=== PATIENT | male | born 1965 | race Caucasian/White ===

== ENCOUNTER 2016-09-05 12:35 | Emergency (ER) | payer BC, OTHER ==
[~2016-09-05] VITALS: Ht 172.7 cm; Wt 93.5 kg
[~2016-09-05 12:35] MED LIST: NADO20TA PO; PRED10TA PO
[2016-09-05 12:40] VITALS: TEMP 36.8; Ht 172.7 cm; Wt 93.5 kg
[2016-09-05] MEDS ORDERED: XYLOCAINE 1%/SOD BICARB 20 ML VIAL INFIL ONE (13:15)
--- NOTE | 2016-09-05 13:37 | EMERGENCY ROOM VISIT NOTE ---
ED Visit Note First contact with patient: 12:44 CHIEF COMPLAINT: Finger infection HISTORY OF PRESENT ILLNESS: This 51-year-old male patient presents to the emergency department complaining of pain and swelling of the right fourth finger. Doesn't remember any injury to the area before it got swollen and tender. First noticed some symptoms about 6 days ago, pain and swelling got progressively worse since that time. The patient has not had a fever. There has been no discharge. The patient has tried Tylenol for pain, with some relief. The patient's tetanus shot is up-to-date. He is right-hand dominant REVIEW OF SYSTEMS: A 6 system review of systems was completed with positives and pertinent negatives listed in the HPI. ALLERGIES: None MEDICATIONS: See chart PMH: See chart. SOCIAL HISTORY: See chart. PHYSICAL EXAM: Vital Signs: Reviewed Nurse's notes, temperature within normal limits, vital signs stable. GENERAL: Pleasant and cooperative, in no acute distress, nontoxic in appearance, well-developed, well-nourished. SKIN: There is erythema, swelling, and tenderness of the nail fold around the lateral cuticle. There is moderate fluctuance with no drainage. There is no pus under the nail. There is no lymphangitic streaking up the hand. Capillary refill less than two seconds. MUSCULOSKELETAL: The patient has full range of motion and strength of the right hand. Peripheral pulses 2+. ED COURSE: I examined the patient. Verbal consent was obtained to perform the procedure. The base of the right fourth finger was cleansed with Betadine, and a digital block was performed using 1% buffered lidocaine. Good anesthesia was achieved. The area of fluctuance of the right fourth finger was cleaned with Betadine. An 11 blade was then used to lift the cuticle off of the nail, successfully draining the paronychia. A small amount of blood and pus was expressed. More was expressed with pressure until all of the pus was relieved. The area was thoroughly cleaned with sterile saline. The area was then dressed with bacitracin and a bandage. The patient tolerated the procedure well. The patient was discharged home in stable condition. Current/Historical Medications No Active Prescriptions or Reported Meds Allergies Coded Allergies: No Known Allergies (Unverified , 02/10/12) Vital Signs Date Time Temp Pulse Resp B/P (MAP) Pulse Ox O2 Delivery O2 Flow Rate FiO2 09/05/16 14:15 71 18 130/79 95 09/05/16 12:40 36.8 61 18 144/90 95 Room Air Medications Administered Medications (Trade) Dose Ordered Sig/Steven Route Start Time Stop Time Status Last Admin Dose Admin Lidocaine HCl (Buffered Lidocaine 1% Inj) 20 ml ONE ONCE INFIL 09/05/16 13:15 09/05/16 13:16 DC 09/05/16 13:15 20 ML Departure Information Impression Primary Impression: Paronychia of right ring finger Dispostion Home / Self-Care Condition GOOD Prescriptions No Active Prescriptions or Reported Meds Referrals RV. Alcantar MD (PCP) Patient Instructions ED Fingernail Infec, [facility] [employer] Additional Instructions Soak the finger in warm salt water 4 times a day for 20 minutes each for the next 3-4 days. You may take Tylenol 1,000 mg every 8 hours and Ibuprofen 600mg every 6-8 hours as needed for pain for the next few days. Follow-up with your PCP in one to 2 days to have the finger rechecked. Please return to the ER for any worsening symptoms, including increased swelling , increased pain, increased redness, increased pus drainage from the finger, red streaking up the hand, fever/chills/feeling ill, or any other concerns of worsening infection.
[2016-09-05 14:15] VITALS: BP 130/79; PULSE 71; O2SAT 95
== END 2016-09-05 14:16 | disposition home or self-care (01) ==
LOC: C.EDB 12:36 → C.EDD 14:16
DX: L03.011 Cellulitis of right finger (principal)